=== PATIENT | female | born 1990 | race Hispanic/Latino ===

== ENCOUNTER 2018-07-25 19:14 | Emergency (ER) | payer MEDICAID, OTHER ==
[2018-07-25 20:26] LABS: APPEARANCE,URINE Clear (CLEAR); BILIRUBIN,URINE Negative (NEGATIVE); COLOR,URINE Yellow (YELLOW); GLUCOSE, URINE (UA) Negative (NEGATIVE); KETONES,URINE Negative (NEGATIVE); LEUKOCYTE ESTERASE ,URINE Trace (NEGATIVE); NITRATE,URINE Negative (NEGATIVE); OCCULT BLOOD,URINE Negative (NEGATIVE); PROTEIN,URINE Negative (NEGATIVE)
[2018-07-25 20:37] LABS: BACTERIA,URINE None Seen /HPF (None Seen); MUCUS,URINE Moderate LPF (None Seen); RBC,URINE None Seen /HPF (0-1); SQUAMOUS EPITHELIAL CELL,UR 0-2 /HPF (0-2); WBC,URINE 0-1 /HPF (0-1)
[2018-07-25 20:45] LABS: RAPID GROUP A STREP NEGATIVE (NEGATIVE)
[2018-07-25] MEDS ORDERED: LIDOCAINE HCL-MPF 1% 2ML VIAL ONE (21:50)
[2018-07-25] MEDS ORDERED: CEFTRIAXONE SODIUM 1 GM ONE (21:51)
[2018-07-25] MEDS ORDERED: IBUPROFEN 600 MG TABLET ONE (21:51)
== END 2018-07-25 22:30 | disposition home or self-care (01) ==
LOC: EDH 19:14
DX: J18.9 Pneumonia, unspecified organism (principal); Z88.0 Allergy status to penicillin
CPT/HCPCS: 71045; 81001; 81025; 87804 ×2; 87880; 96372; 99285; J0696; J3490